=== PATIENT | female | born 1925 | race Caucasian/White ===

== ENCOUNTER → 2017-04-20 | Outpatient (CLI) | payer OTHER, BC ==
[~2017-04-20] MED LIST: ASPI-435 PO; ATEN50TA8 PO; DOCU-94 PO; DONE5TAB9 PO; LISI-461 PO; MEMA5TAB; SIMV-150 PO; VTMD1000 PO; WARF5TAB7 PO; WARF7.5T4 PO
[2017-04-20 10:00] LABS: URINE APPEARANCE CLEAR (CLEAR); URINE BILIRUBIN NEG (NEG); URINE COLOR YELLOW; URINE EPITHELIAL CELL AUTO 20-30 /lpf (0-5); URINE NITRITE NEG (NEG); URINE PH 6.5 (4.5-7.5); URINE SPECIFIC GRAVITY 1.014 (1.000-1.030); UROBILINOGEN NEG (NEG)
[2017-04-20 10:08] LABS: MANUAL MICROSCOPIC REQUIRED? NO; REVIEW REQ? NO
== END | disposition home or self-care (01) ==
LOC: C.LAB 08:38
PROVIDERS: ATTEND Family Medicine
DX: N39.0 Urinary tract infection, site not specified (principal)

== ENCOUNTER → 2017-08-09 | Outpatient (CLI) | payer OTHER, BC ==
[2017-08-09 10:10] LABS: BASO % 0.4 %; BASO ABS # 0.04 K/uL (0-0.2); COMPLETE YES; EOS % 2.1 %; HEMATOCRIT 45.2 % (37-47); IG% 0.3 %; LYMPH % 20.7 %; LYMPH ABS # 2.04 K/uL (1.2-3.4); MEAN CELL VOLUME 92.6 fL (80-100); MEAN CORPUSCULAR HEMOGLOBIN 30.5 pg (25-34); MEAN PLATELET VOLUME 9.9 fL (7.4-10.4); MONO % 8.2 %; NEUT % 68.3 %; PLATELET COUNT 345 K/uL (130-400); RED BLOOD COUNT 4.88 M/uL (4.2-5.4); WHITE BLOOD COUNT 9.86 K/uL (4.8-10.8)
[2017-08-09 10:41] LABS: ALT/SGPT 19 U/L (12-78); AST/SGOT 14 U/L (15-37); BLOOD UREA NITROGEN 15 mg/dl (7-18); BUN/CREATININE RATIO 17.6 (10-20); CALCIUM 9.4 mg/dl (8.5-10.1); CARBON DIOXIDE 29 mmol/L (21-32); CHLORIDE 102 mmol/L (98-107); CHOLESTEROL 282 mg/dl (0-200); CREATININE 0.83 mg/dl (0.60-1.20); GLUCOSE 88 mg/dl (70-99); POTASSIUM 4.1 mmol/L (3.5-5.1); SODIUM 135 mmol/L (136-145); TRIGLYCERIDES 255 mg/dl (0-150); URIC ACID 4.5 mg/dl (2.6-7.2); VERY LOW DENSITY LIPOPROT CALC 51 mg/dl
[2017-08-09 10:49] LABS: ALB/GLOB RATIO 0.8 (0.9-2); ALKALINE PHOSPHATASE 92 U/L (45-117); CHOLESTEROL/HDL RATIO 5.2; HDL CHOLESTEROL 54 mg/dl; LDL CHOLESTEROL CALCULATED 177 mg/dl; TOTAL IRON BINDING CAPACITY 339 mcg/dl (250-450)
[2017-08-09 11:37] LABS: ESTIMATED AVERAGE GLUCOSE 120 mg/dl; HA1C FLAG Normal (Normal)
== END | disposition home or self-care (01) ==
LOC: C.LAB 09:37
PROVIDERS: ATTEND Family Medicine
DX: R73.09 Other abnormal glucose (principal); E55.9 Vitamin D deficiency, unspecified; D51.9 Vitamin B12 deficiency anemia, unspecified; E78.9 Disorder of lipoprotein metabolism, unspecified; R53.83 Other fatigue